=== PATIENT | female | born 1965 | race Caucasian/White ===

== ENCOUNTER 2019-07-07 21:24 | Observation (INO) ==
[2019-07-07] MEDS ORDERED: methylPREDNISolone SOD SUC 125 MG/2 ML VIAL IV STA (22:43)
[2019-07-07 22:55] LABS: Basophils # 0.1 10*3/uL (0.0-0.2); Basophils % 1.2 % (0.0-0.8); Eosinophils # 1.2 10*3/uL (0.0-0.87); Eosinophils % 21.1 % (0.00-10.9); Hematocrit 35.1 VOL% (35.7-47.0); Hemoglobin 11.5 GM/DL (12.0-16.0); Immature Granulocytes % 0.2 %; Immature Granulocytes Absolute 0.01 #; Lymphocytes # 1.4 10*3/uL (1.4-4.0); Lymphocytes % 24.1 % (21.3-54.2); Mean Corpuscular HGB Conc 32.8 GM/DL (32-36); Mean Corpuscular Volume 94.4 FL (87-102); Mean Platelet Volume 10.9 FL (9.6-12.0); Monocytes % 6.8 % (1.7-12.7); Neutrophils % 46.6 % (38.7-73.9); Platelet Count 279 T/CUMM (130-400); Red Blood Count 3.72 MC/CUMM (3.8-5.5); Red Cell Distribution Width 13.3 % (9.3-17.3); White Blood Count 5.9 T/CUMM (4-12)
[2019-07-07] MEDS ORDERED: ALBUTEROL NEB SOLN 5 MG/ML 20 ML/BOTTLE RESP TX SCH (23:00)
[2019-07-07 23:05] LABS: ABG Base Excess 3.2 MMOL/L (-2.5-2.5); ABG HCO3 27.8 MMOL/L (20-26); ABG Oxygen Saturation 98.4 % (95-100); ABG PCO2 42.5 MM HG (35-48); ABG PH 7.434 (7.35-7.45); ABG TCO2 29.1 MMOL/L (23-27); Allen Test Positive
[2019-07-07 23:08] LABS: Alanine Aminotransferase 33 U/L (13-56); Albumin 3.7 G/DL (3.4-5.0); Alkaline Phosphatase 76 U/L (45-117); Aspartate Amino Transferase 28 U/L (0-37); Bilirubin,Total < 0.39 MG/DL (0.2-1.0); Blood Urea Nitrogen 11 MG/DL (7-18); Calcium 9.2 MG/DL (8.5-10.1); Estimated Glom Filtration Rate 90 ML/MIN; Glucose 124 MG/DL (74-106); Total Protein 7.3 G/DL (6.4-8.3)
[2019-07-07 23:56] LABS: Eosinophils 22 % (0-10); Lymphocytes 24 % (20-55); Platelet Estimate Normal; Segmented Neutrophils 48 % (50-85); Total Cells Counted 100
[2019-07-07] MEDS ORDERED: ACETAMINOPHEN 325 MG TABLET PO PRN (23:59)
[2019-07-07] MEDS ORDERED: ONDANSETRON 4 MG/2 ML VIAL IV PRN (23:59)
[2019-07-07] MEDS ORDERED: NICOTINE 21 MG/24 HR PATCH TRANSDERM PRN (23:59)
[2019-07-07] MEDS ORDERED: diphenhydrAMINE CAP 25 MG CAPSULE PO PRN (23:59)
[2019-07-07] MEDS ORDERED: BISACODYL 5 MG TABLET PO PRN (23:59)
[2019-07-07] MEDS ORDERED: MORPHINE 4 MG/1 ML VIAL IV PRN (23:59)
[2019-07-08] MEDS: ALBUTEROL/IPRATROPIUM 3 ML NEB RESP TX SCH ×4 (01:10→19:14)
[2019-07-08] MEDS: SODIUM CHLORIDE 0.9% 1,000 ML IV SCH ×2 (01:39→13:11)
[2019-07-08] MEDS ORDERED: POTASSIUM CHLORIDE 20 MEQ TABLET PO ONE (05:01)
[2019-07-08] MEDS ORDERED: ALPRAZolam 0.25 MG TABLET PO PRN (06:05)
[2019-07-08] MEDS: ALBUTEROL 2.5 MG/3 ML NEB RESP TX PRN ×2 (06:20→10:39)
[2019-07-08] MEDS: methylPREDNISolone SOD SUC 40 MG/1 ML VIAL IV SCH ×3 (07:26→23:59)
[2019-07-08] MEDS: PANTOPRAZOLE 40 MG TABLET PO SCH (08:29)
[2019-07-08] MEDS ORDERED: OXYMETAZOLINE 0.05% NASAL SPRAY 15 ML BOTTLE BOTH NARES PRN (12:06)
[2019-07-08] MEDS: BECLOMETHASONE 80 MCG/PUFF INHALER 8.7 GM INH SCH ×2 (13:10→21:24)
[2019-07-08] MEDS: guaiFENesin/DM ER 600-30 MG TABLET PO PRN (13:17)
[2019-07-08] MEDS ORDERED: cefTRIAXone 1,000 MG VIAL IM SCH (15:30)
[2019-07-08] MEDS: AZITHROMYCIN 250 MG TABLET PO SCH (15:53)
[2019-07-08] MEDS: cefTRIAXone 1,000 MG in SODIUM CHLORIDE 0.9% 100 ML IV SCH (15:57)
[2019-07-09] MEDS: ALBUTEROL/IPRATROPIUM 3 ML NEB RESP TX SCH ×4 (00:53→19:59)
[2019-07-09] MEDS: SODIUM CHLORIDE 0.9% 1,000 ML IV SCH ×2 (02:41→14:25)
[2019-07-09] MEDS: ALBUTEROL 2.5 MG/3 ML NEB RESP TX PRN (04:33)
[2019-07-09 05:12] LABS: Calcium 8.7 MG/DL (8.5-10.1); Osmolality,Calculated 281.4 MOS/KG (273-304)
[2019-07-09] MEDS: MONTELUKAST 10 MG TABLET PO SCH (08:49)
[2019-07-09] MEDS: CETIRIZINE 10 MG TABLET PO SCH (08:49)
[2019-07-09] MEDS: PANTOPRAZOLE 40 MG TABLET PO SCH (08:49)
[2019-07-09] MEDS: guaiFENesin/DM ER 600-30 MG TABLET PO PRN (08:49)
[2019-07-09] MEDS: AZITHROMYCIN 250 MG TABLET PO SCH (08:49)
[2019-07-09] MEDS: BECLOMETHASONE 80 MCG/PUFF INHALER 8.7 GM INH SCH ×2 (08:50→21:35)
[2019-07-09] MEDS: methylPREDNISolone SOD SUC 40 MG/1 ML VIAL IV SCH ×2 (12:29→23:48)
[2019-07-09] MEDS: BENZONATATE 100 MG CAPSULE PO SCH ×2 (14:24→21:36)
[2019-07-09] MEDS: cefTRIAXone 1,000 MG in SODIUM CHLORIDE 0.9% 100 ML IV SCH (15:58)
[2019-07-10] MEDS: ALBUTEROL/IPRATROPIUM 3 ML NEB RESP TX SCH ×2 (01:24→07:50)
[2019-07-10] MEDS: SODIUM CHLORIDE 0.9% 1,000 ML IV SCH (03:24)
[2019-07-10] MEDS: BENZONATATE 100 MG CAPSULE PO SCH (09:35)
[2019-07-10] MEDS: methylPREDNISolone SOD SUC 40 MG/1 ML VIAL IV SCH (09:35)
[2019-07-10] MEDS: AZITHROMYCIN 250 MG TABLET PO SCH (09:36)
[2019-07-10] MEDS: cefTRIAXone 1,000 MG in SODIUM CHLORIDE 0.9% 100 ML IV SCH (09:36)
[2019-07-10] MEDS: CETIRIZINE 10 MG TABLET PO SCH (09:36)
[2019-07-10] MEDS: PANTOPRAZOLE 40 MG TABLET PO SCH (09:36)
[2019-07-10] MEDS: MONTELUKAST 10 MG TABLET PO SCH (09:36)
[2019-07-10] MEDS: BECLOMETHASONE 80 MCG/PUFF INHALER 8.7 GM INH SCH (09:37)
[2019-07-10 11:51] VITALS: BP 168/99
== END 2019-07-10 12:23 | disposition home or self-care (01) ==
LOC: N.ED 21:24 → N.EDINP 21:24 → SUATTDRO 23:59 → N.EDINP 07-08 00:55 → N.2E 07-08 00:59
PROVIDERS: ADMIT Internal Medicine Cardiovascular Disease; ATTEND Internal Medicine

== ENCOUNTER 2022-04-06 17:54 | Inpatient (IN) ==
[~2022-04-06 17:54] MED LIST: ENOXAPARIN 40 MG/0.4 ML SYRINGE SUBCUT SCH
[2022-04-06] MEDS ORDERED: methylPREDNISolone SOD SUC 125 MG/2 ML VIAL IV STA ×2 (18:52→20:52)
[2022-04-06] MEDS ORDERED: SODIUM CHLORIDE 0.9% 1,000 ML IV STA ×2 (18:52→19:36)
[2022-04-06] MEDS ORDERED: ALBUTEROL/IPRATROPIUM 3 ML NEB RESP TX STA (18:52)
[2022-04-06 19:09] LABS: Basophils % 0.5 % (0.0-0.8); Eosinophils # 1.2 10*3/uL (0.0-0.87); Eosinophils % 15.8 % (0.00-10.9); Hematocrit 37.1 VOL% (35.7-47.0); Hemoglobin 12.4 GM/DL (12.0-16.0); Immature Granulocytes % 0.4 %; Immature Granulocytes Absolute 0.03 #; Lymphocytes # 1.8 10*3/uL (1.4-4.0); Lymphocytes % 23.5 % (21.3-54.2); Mean Corpuscular HGB Conc 33.4 GM/DL (32-36); Mean Corpuscular Volume 89.6 FL (87-102); Mean Platelet Volume 10.9 FL (9.6-12.0); Monocytes # 0.5 10*3/uL (0.11-0.8); Monocytes % 6.7 % (1.7-12.7); Neutrophils % 53.1 % (38.7-73.9); Platelet Count 274 T/CUMM (130-400); Red Blood Count 4.14 MC/CUMM (3.8-5.5); Red Cell Distribution Width 12.5 % (9.3-17.3); White Blood Count 7.5 T/CUMM (4-12)
[2022-04-06 19:29] LABS: ABG Base Excess 1.8 MMOL/L (-2.5-2.5); ABG HCO3 25.9 MMOL/L (20-26); ABG Oxygen Saturation 93.5 % (95-100); ABG PCO2 26.3 MM HG (35-48); ABG PH 7.551 (7.35-7.45); ABG PO2 60.5 MM HG (80-95); ABG TCO2 20.3 MMOL/L (23-27)
[2022-04-06 19:30] LABS: Eosinophils 16 % (0-10); Lymphocytes 20 % (20-55)
[2022-04-06 19:31] LABS: Platelet Estimate Increased; Total Cells Counted 100
[2022-04-06 19:34] LABS: Alanine Aminotransferase 22 U/L (13-56); Albumin 3.1 G/DL (3.4-5.0); Alkaline Phosphatase 110 U/L (45-117); Aspartate Amino Transferase 32 U/L (0-37); Bilirubin,Total < 0.39 MG/DL (0.20-1.00); Blood Urea Nitrogen 12 MG/DL (7-18); Calcium 9.4 MG/DL (8.5-10.1); Carbon Dioxide 23 MMOL/L (21-32); Chloride 111 MMOL/L (98-107); Glucose 109 MG/DL (74-106); Osmolality,Calculated 283.1 MOS/KG (273-304); Potassium 3.2 MMOL/L (3.5-5.1); Sodium 142 MMOL/L (136-145); Total Protein 6.7 G/DL (6.4-8.2)
[2022-04-06] MEDS ORDERED: LEVOFLOXACIN INJ 750 MG/150 ML PREMIX IV STA (19:36)
[2022-04-06] MEDS ORDERED: diphenhydrAMINE 50 MG/1 ML VIAL IV STA (20:51)
[2022-04-06] MEDS ORDERED: FAMOTIDINE 20 MG/2 ML VIAL IV STA (20:52)
[2022-04-06] MEDS ORDERED: FAMOTIDINE 20 MG/2 ML VIAL IV ONE (20:53)
[2022-04-06] MEDS ORDERED: diphenhydrAMINE 50 MG/1 ML VIAL ONE (20:53)
[2022-04-06] MEDS ORDERED: DEXTROSE 10% 250 ML BAG IV PRN (22:59)
[2022-04-06] MEDS ORDERED: MORPHINE 2 MG/1 ML SYRINGE IV PRN (22:59)
[2022-04-06] MEDS ORDERED: GLUCAGON 1 MG VIAL IM PRN (22:59)
[2022-04-06] MEDS ORDERED: hydrALAZINE 20 MG/1 ML VIAL IV PRN (23:07)
[2022-04-06] MEDS ORDERED: POTASSIUM CHLORIDE 20 MEQ TABLET PO ONE (23:30)
[2022-04-06] MEDS: methylPREDNISolone SOD SUC 125 MG/2 ML VIAL IV SCH (23:35)
[2022-04-06] MEDS: cefTRIAXone 1,000 MG in SODIUM CHLORIDE 0.9% 100 ML IV SCH (23:41)
[2022-04-06] MEDS: ALBUTEROL/IPRATROPIUM 3 ML NEB RESP TX SCH (23:55)
[2022-04-07] MEDS: ARFORMOTEROL 15 MCG/2 ML NEB RESP TX SCH ×3 (00:44→19:16)
[2022-04-07] MEDS: AZITHROMYCIN INJ 500 MG in SODIUM CHLORIDE 0.9% 250 ML IV SCH ×2 (00:44→23:01)
[2022-04-07] MEDS: BUDESONIDE 0.5 MG/2 ML NEB RESP TX SCH ×3 (00:44→19:13)
[2022-04-07] MEDS: ALBUTEROL/IPRATROPIUM 3 ML NEB RESP TX SCH ×6 (04:13→22:40)
[2022-04-07 04:27] LABS: Basophils % 0.2 % (0.0-0.8); Hematocrit 33.8 VOL% (35.7-47.0); Hemoglobin 10.9 GM/DL (12.0-16.0); Lymphocytes # 0.5 10*3/uL (1.4-4.0); Lymphocytes % 12.6 % (21.3-54.2); Mean Corpuscular HGB Conc 32.2 GM/DL (32-36); Mean Corpuscular Volume 93.1 FL (87-102); Mean Platelet Volume 10.6 FL (9.6-12.0); Monocytes # 0.1 10*3/uL (0.11-0.8); Monocytes % 1.2 % (1.7-12.7); Platelet Count 245 T/CUMM (130-400); Red Blood Count 3.63 MC/CUMM (3.8-5.5); Red Cell Distribution Width 12.6 % (9.3-17.3); White Blood Count 4.3 T/CUMM (4-12)
[2022-04-07 04:51] LABS: Calcium 8.7 MG/DL (8.5-10.1); Osmolality,Calculated 295.7 MOS/KG (273-304); Potassium 3.8 MMOL/L (3.5-5.1)
[2022-04-07] MEDS: methylPREDNISolone SOD SUC 125 MG/2 ML VIAL IV SCH ×3 (07:37→23:01)
[2022-04-07] MEDS: BISACODYL 5 MG TABLET PO SCH (09:02)
[2022-04-07] MEDS: ENOXAPARIN 40 MG/0.4 ML SYRINGE SUBCUT SCH (09:02)
[2022-04-07] MEDS: PANTOPRAZOLE 40 MG TABLET PO SCH (09:02)
[2022-04-07] MEDS ORDERED: PNEUMOCOCCAL VACCINE (23 VALENT) 0.5 ML VIAL IM ONE (10:22)
[2022-04-07] MEDS ORDERED: amLODIPine 5 MG TABLET PO ONE (16:00)
[2022-04-07] MEDS: ACETAMINOPHEN 325 MG TABLET PO PRN (20:43)
[2022-04-07] MEDS: cefTRIAXone 1,000 MG in SODIUM CHLORIDE 0.9% 100 ML IV SCH (22:30)
[2022-04-08] MEDS: ONDANSETRON 4 MG/2 ML VIAL IV PRN (00:44)
[2022-04-08] MEDS: ZALEPLON 5 MG CAPSULE PO PRN ×2 (00:46→22:20)
[2022-04-08] MEDS: ALBUTEROL/IPRATROPIUM 3 ML NEB RESP TX SCH ×6 (01:18→23:20)
[2022-04-08] MEDS: BUDESONIDE 0.5 MG/2 ML NEB RESP TX SCH ×2 (07:23→19:00)
[2022-04-08] MEDS: methylPREDNISolone SOD SUC 125 MG/2 ML VIAL IV SCH (08:58)
[2022-04-08] MEDS: BISACODYL 5 MG TABLET PO SCH ×2 (08:59→09:01)
[2022-04-08] MEDS: PANTOPRAZOLE 40 MG TABLET PO SCH (08:59)
[2022-04-08] MEDS: ENOXAPARIN 40 MG/0.4 ML SYRINGE SUBCUT SCH (08:59)
[2022-04-08] MEDS ORDERED: amLODIPine 5 MG TABLET PO SCH (09:00)
[2022-04-08] MEDS: ACETAMINOPHEN 325 MG TABLET PO PRN (10:44)
[2022-04-08] MEDS: ARFORMOTEROL 15 MCG/2 ML NEB RESP TX SCH ×2 (14:40→19:00)
[2022-04-08 15:58] LABS: Folate 10.72 NG/ML (5.38-24.0)
[2022-04-08] MEDS: FLUTICASONE 50 MCG NASAL SPRAY 16 GM BOTTLE BOTH NARES SCH ×2 (17:26→21:09)
[2022-04-08] MEDS: methylPREDNISolone SOD SUC 40 MG/1 ML VIAL IV SCH (21:09)
[2022-04-08] MEDS: amLODIPine 5 MG TABLET PO SCH (21:09)
[2022-04-08] MEDS: cefTRIAXone 1,000 MG in SODIUM CHLORIDE 0.9% 100 ML IV SCH (23:24)
[2022-04-09] MEDS: AZITHROMYCIN INJ 500 MG in SODIUM CHLORIDE 0.9% 250 ML IV SCH ×2 (00:32→22:43)
[2022-04-09] MEDS: ALBUTEROL/IPRATROPIUM 3 ML NEB RESP TX SCH ×5 (02:20→19:13)
[2022-04-09] MEDS: ARFORMOTEROL 15 MCG/2 ML NEB RESP TX SCH ×2 (07:05→19:20)
[2022-04-09] MEDS: BUDESONIDE 0.5 MG/2 ML NEB RESP TX SCH ×2 (07:05→19:13)
[2022-04-09] MEDS: ENOXAPARIN 40 MG/0.4 ML SYRINGE SUBCUT SCH (09:00)
[2022-04-09] MEDS: methylPREDNISolone SOD SUC 40 MG/1 ML VIAL IV SCH ×2 (09:00→21:32)
[2022-04-09] MEDS: PANTOPRAZOLE 40 MG TABLET PO SCH (09:00)
[2022-04-09] MEDS: amLODIPine 5 MG TABLET PO SCH ×2 (09:01→21:33)
[2022-04-09] MEDS: ONDANSETRON 4 MG/2 ML VIAL IV PRN (09:02)
[2022-04-09] MEDS: FLUTICASONE 50 MCG NASAL SPRAY 16 GM BOTTLE BOTH NARES SCH ×2 (09:07→21:33)
[2022-04-09] MEDS: BISACODYL 5 MG TABLET PO SCH (10:25)
[2022-04-09] MEDS: guaiFENesin/CODEINE 5 ML LIQUID PO PRN (15:38)
[2022-04-09] MEDS: CHOLECALCIFEROL 5,000 UNIT TABLET PO SCH (15:38)
[2022-04-09] MEDS: ZALEPLON 5 MG CAPSULE PO PRN (21:33)
[2022-04-09] MEDS: cefTRIAXone 1,000 MG in SODIUM CHLORIDE 0.9% 100 ML IV SCH (22:43)
[2022-04-10] MEDS: ALBUTEROL/IPRATROPIUM 3 ML NEB RESP TX SCH ×6 (00:08→19:10)
[2022-04-10 06:43] LABS: Basophils % 0.2 % (0.0-0.8); Hematocrit 34.5 VOL% (35.7-47.0); Hemoglobin 11.2 GM/DL (12.0-16.0); Immature Granulocytes % 1.9 %; Immature Granulocytes Absolute 0.23 #; Lymphocytes # 1.8 10*3/uL (1.4-4.0); Lymphocytes % 14.3 % (21.3-54.2); Mean Corpuscular HGB Conc 32.5 GM/DL (32-36); Mean Corpuscular Volume 92.5 FL (87-102); Monocytes # 0.4 10*3/uL (0.11-0.8); Monocytes % 3.2 % (1.7-12.7); Neutrophils % 80.4 % (38.7-73.9); Platelet Count 308 T/CUMM (130-400); Red Blood Count 3.73 MC/CUMM (3.8-5.5); Red Cell Distribution Width 12.8 % (9.3-17.3); White Blood Count 12.3 T/CUMM (4-12)
[2022-04-10 06:46] LABS: Calcium 9.3 MG/DL (8.5-10.1); Osmolality,Calculated 287.3 MOS/KG (273-304); Potassium 4.3 MMOL/L (3.5-5.1)
[2022-04-10] MEDS: BUDESONIDE 0.5 MG/2 ML NEB RESP TX SCH ×2 (07:18→19:17)
[2022-04-10] MEDS: ARFORMOTEROL 15 MCG/2 ML NEB RESP TX SCH ×2 (07:18→19:17)
[2022-04-10] MEDS: amLODIPine 5 MG TABLET PO SCH ×2 (09:23→20:48)
[2022-04-10] MEDS: BISACODYL 5 MG TABLET PO SCH (09:23)
[2022-04-10] MEDS: PANTOPRAZOLE 40 MG TABLET PO SCH (09:23)
[2022-04-10] MEDS: CHOLECALCIFEROL 5,000 UNIT TABLET PO SCH (09:23)
[2022-04-10] MEDS: FLUTICASONE 50 MCG NASAL SPRAY 16 GM BOTTLE BOTH NARES SCH ×2 (09:24→20:50)
[2022-04-10] MEDS: ENOXAPARIN 40 MG/0.4 ML SYRINGE SUBCUT SCH (09:24)
[2022-04-10] MEDS: methylPREDNISolone SOD SUC 40 MG/1 ML VIAL IV SCH (09:24)
[2022-04-10] MEDS ORDERED: AZITHROMYCIN 250 MG TABLET PO SCH (20:00)
[2022-04-10] MEDS: ZALEPLON 5 MG CAPSULE PO PRN (20:48)
[2022-04-10] MEDS: guaiFENesin/CODEINE 5 ML LIQUID PO PRN (20:53)
[2022-04-10] MEDS: cefTRIAXone 1,000 MG in SODIUM CHLORIDE 0.9% 100 ML IV SCH (23:12)
[2022-04-11] MEDS: ALBUTEROL/IPRATROPIUM 3 ML NEB RESP TX SCH ×3 (02:36→07:21)
[2022-04-11] MEDS: ARFORMOTEROL 15 MCG/2 ML NEB RESP TX SCH (07:21)
[2022-04-11] MEDS: BUDESONIDE 0.5 MG/2 ML NEB RESP TX SCH (07:21)
[2022-04-11 07:33] VITALS: BP 175/91
[2022-04-11] MEDS: PANTOPRAZOLE 40 MG TABLET PO SCH (08:11)
[2022-04-11] MEDS: amLODIPine 5 MG TABLET PO SCH (08:11)
[2022-04-11] MEDS: BISACODYL 5 MG TABLET PO SCH (08:12)
[2022-04-11] MEDS: ENOXAPARIN 40 MG/0.4 ML SYRINGE SUBCUT SCH (08:12)
[2022-04-11] MEDS: CHOLECALCIFEROL 5,000 UNIT TABLET PO SCH (08:12)
[2022-04-11] MEDS: FLUTICASONE 50 MCG NASAL SPRAY 16 GM BOTTLE BOTH NARES SCH (08:12)
[2022-04-11] MEDS ORDERED: predniSONE 20 MG TABLET PO SCH (09:00)
[2022-04-11] MEDS ORDERED: PNEUMOCOCCAL VACCINE (23 VALENT) 0.5 ML VIAL IM ONE (11:30)
[2022-04-11] MEDS ORDERED: cephALEXin 500 MG CAPSULE PO SCH (21:00)
== END 2022-04-11 12:10 | disposition home or self-care (01) | DRG 191 ==
LOC: N.ED 17:54 → N.EDINP 22:59 → N.5E 04-07 11:00
PROVIDERS: ADMIT Internal Medicine; ATTEND Internal Medicine